=== PATIENT | female | born 1935 | race Caucasian/White ===

== ENCOUNTER → 2018-01-04 | Outpatient (CLI) | payer MEDICARE, BC ==
[~2018-01-04] MED LIST: AZI250 PO; BONIVA; CALC-649 PO; CHOL100052 PO; CYC10 PO; DEN60I SUBQ; EST3 PO; ETHA400T30 PO; FLUT16SP19 NS; HYDRO25 PO; IBAN150T6 PO; KET10 PO; LEV500 PO; LISI-362 PO; LOPE2CAP15 PO; LOR5/325 PO; METO25TA91 PO; MIRT7.5T2 PO; MULT1TAB64 PO; PNEU0.5D3 IM; PRE20 PO; RIFA300C50 PO; TRI05T TOP; VALS80TA7 PO; [UNRECOGNIZED DRUG - CODE] IJ
--- NOTE | 2018-01-04 14:01 | RADIOLOGY IMAGING REPORT ---
FACILITY: [facility] PATIENT NAME: Ludmila Yang : 1935 MR: [id number] V: [id number] EXAM DATE: ORDERING PHYSICIAN: JOSE YING TECHNOLOGIST: Location: [facility] - [place] Patient: Ludmila Yang : 1935 Visit/Account:[id number] Date of Sevice: 01/04/2018 Exam type: CHEST PA AND LAT History: Cough x1 month, history of lobectomy Comparison: September 03, 2015. Findings: Again noted is hyperinflation of the lung duran.. Extensive pleural parenchymal scarring throughout the lungs again seen particularly prominent over the medial right upper and lower lung druan. Sutu re material projects over the left hilar region. No new areas of pulmonary consolidation are identif ied. There is no evidence of pleural effusions. The cardiac silhouette is normal in size. There is diffuse osteopenia the visualized bones. IMPRESSION: 1. Hyperinflation lung duran and extensive chronic pleural parenchymal scarring appears similar to the prior study. Postoperative changes of the left lung Report Dictated By: Aida Valdez MD at 01/04/2018 1:50 PM Report E-Signed By: Aida Valdez MD at 01/04/2018 1:56 PM WSN:ANA CRISTINA
== END ==
LOC: RAD 13:12
PROVIDERS: ATTEND Internal Medicine
DX: M85.88 Other specified disorders of bone density and structure, other site (principal); R91.8 Other nonspecific abnormal finding of lung field
CPT/HCPCS: 71046

== ENCOUNTER 2018-03-02 07:59 | Outpatient (RCR) | payer MEDICARE, BC ==
[2018-03-01 15:12] LABS: PLATELET COUNT, AUTOMATED 167 K/uL (150-450)
[~2018-03-02 07:59] MED LIST changes: +GUAI600T57 PO; +IPRA3AMP21 IH; +LEVO-85 PO; +METO25TA23 PO
[2018-03-02] MEDS ORDERED: IOPAMIDOL 76% 75 ML INFUS BTL 0 ML ONE (11:10)
--- NOTE | 2018-03-02 15:40 | RADIOLOGY IMAGING REPORT ---
FACILITY: [facility] - [place] PATIENT NAME: Ludmila Yang : 1935 MR: [id number] V: [id number] EXAM DATE: ORDERING PHYSICIAN: JOSE YING TECHNOLOGIST: [place] [facility] [place] Patient: Ludmila Yang : 1935 Visit/Account:[id number] Date of Sevice: 03/02/2018 EXAMINATION: CT Thorax W/O Contrast HISTORY: Chronic cough. Bronchiectasis. TECHNIQUE: High resolution CT chest protocol: A non-intravenous enhanced contiguous spiral scan was obtained through the chest. This was followed by inspiration and expiration 1 mm thick high-resolutio n axial images at 15 mm intervals, reconstructed using a high spatial resolution algorithm. One of th e following dose optimization techniques was utilized in the performance of this exam: Automated expo sure control; adjustment of the mA and/or kV according to the patient's size; or use of an iterative reconstruction technique. Specific details can be referenced in the facility's radiology CT exam op erational policy. COMPARISON STUDIES: None. FINDINGS: Chest survey: Heart is normal size with small pericardial fluid. Aorta shows mild atherosclerotic seferino cific changes without indication of aneurysm. Pulmonary arteries are grossly normal. The mediastinum and hilar regions do show a few small lymph nodes without enlarged lymph nodes or abnormal density. C hest wall shows no enlarged axillary lymph nodes or masses. Upper abdomen is unremarkable. Bony struc tures show no acute fracture or discrete lesions. There may be a couple small loose body seen in the right subacromial bursa. High Resolution Inspiration images: Early consolidation seen in the posterior aspect the right upper lobe. No other areas of consolidation. No pleural effusion or pneumothorax. There is mild bronchiecta sis present mainly in the left lobe and prominent in the right lobe with more prominence in the right lower lobe. Mild bronchial calcifications. Both lungs do show some peripheral scattered reticulonodu lar opacities. The airways appear clear. High Resolution Expiration images: No significant airway gas trapping IMPRESSION: 1. Early consolidation of the posterior aspect right upper lobe. This may represent early pneumonia v ersus atelectasis. Discrete cause is not identified. 2. Bronchiectasis more right sided and predominantly in the right lower lobe. 3. Scattered reticulonodular opacities seen in both lungs mainly in the periphery of the lower lung f ields. This nonspecific and could be chronic versus acute pneumonitis. 4. Small pericardial fluid, nonspecific. 5. Other chronic findings as above. I called report to JOSE YING at 03/02/2018 3:36 PM. Report Dictated By: John Cordova at 03/02/2018 2:58 PM Report E-Signed By: John Cordova at 03/02/2018 3:37 PM WSN:[id number]
[2018-03-03] MEDS ORDERED: NAPR220C12 PO (14:08)
== END 2018-03-02 14:20 | disposition home or self-care (01) ==
LOC: CT 07:59
PROVIDERS: ATTEND Internal Medicine
DX: J47.9 Bronchiectasis, uncomplicated (principal)
CPT/HCPCS: 36415; 71250; 82040; 82247; 82310; 82374; 82435; 82565; 82947; 84075; 84132; 84155; 84295; 84450; 84460; 84520; 85025; 85651; 86140; 87070; 87116; 87205; Q9967

== ENCOUNTER 2018-03-03 10:52 | Inpatient (IN) | payer MEDICARE, BC ==
[~2018-03-03] VITALS: Ht 157.5 cm; Wt 40.8 kg
--- NOTE | 2018-03-03 11:11 | ER Report ---
History and Physical Time Seen By MD: 11:10 HPI/ROS CHIEF COMPLAINT: Shortness of breath HISTORY OF PRESENT ILLNESS: 82-year-old female patient presents to the emergency room with complaint of shortness of breath. Patient states she was seen by Dr. Fernandez 2 days ago. At that time she had been having significant shortness of breath. He states that her oxygen levels were 86-87% when she was sitting on room air. He states that she would desat with any type of movement. Patient has a history of bronchiectasis for which she sees pulmonology. She seemed proximal one year ago and was told that he was stable at that time. Patient has been feeling very fatigued, having more phlegm. The patient had lab work and a CT scan done yesterday which showed a developing pneumonia in the right upper lobe. At that time she was encouraged him to the emergency room for evaluation. Patient refused at that time. Patient states that she is feeling worse today. When she arrived she was 85% on room air. Patient has been taking Levaquin, she does live at home with her and does not wear oxygen normally. REVIEW OF SYSTEMS: Respiratory: As noted above Cardiovascular: No chest pain, no palpitations. Gastrointestinal: No vomiting, no abdominal pain. Musculoskeletal: No back pain. Allergies: Coded Allergies: promethazine (Verified Allergy, Mild, CRAZY, 12/08/12) ciprofloxacin (Verified Allergy, Unknown, 08/04/17) EHR CONVERSION erythromycin base (Verified Allergy, Unknown, 08/04/17) EHR CONVERSION rifabutin (Verified Allergy, Unknown, 08/04/17) EHR CONVERSION Home Meds Active Scripts Guaifenesin (MUCINEX) 600 Mg Tablet.er, 600 MG PO BID Y for cough, #30 TAB 1 Refill Prov:JOSE YING MD 03/01/18 Metoprolol Succinate (METOPROLOL SUCCINATE) 25 Mg Tab.er.24h, 1 TAB PO QDAY, # 30 TAB 5 Refills Prov:JOSE YING MD 03/01/18 Levofloxacin 500 Mg Tab (LEVAQUIN 500 MG TAB) 500 Mg Tablet, 500 MG PO QDAY, # 10 TAB Prov:JOSE YING MD 03/01/18 Fluticasone Prop 50 Mcg Ns (FLONASE 50 MCG NS) 16 Gm [place].susp, 1 SPRAY NS QDAY , #1 BOT 2 Refills Prov:JOSE YING MD 01/04/18 Loperamide HCl (Imodium A-D) 2 Mg Capsule, 1 TAB-CAP PO QDAY Y for as needed foe diarhea, #30 TAB-CAP Prov:JOSE YING MD 12/08/17 Reported Medications Naproxen Sodium (ALEVE) 220 Mg Capsule, 220 MG PO Y for PAIN, CAPSULE 03/03/18 Cholecalciferol (Vitamin D3) (VITAMIN D) 1,000 Unit Tablet, 1000 UNIT PO QDAY 12/08/17 Discontinued Reported Medications Multivitamin (MULTI VITAMIN DAILY) 1 Each Tablet, 1 EACH PO QDAY 12/08/17 Discontinued Scripts Valsartan (Valsartan) 80 Mg Tablet, 1 TAB PO BID, #60 TAB 6 Refills Prov:JOSE YING MD 01/04/18 Past Medical/Surgical History Patient has a past medical history of hypertension, bronchiectasis. Patient has a surgical history of bilateral lung surgery, orthopedic surgery, bowel surgery, hysterectomy. Reviewed Nurses Notes: Yes Hx Smoking: No Smoking Status: Never Smoker Constitutional Vital Sign - Last 24 Hours 03/03/18 03/03/18 03/03/18 03/03/18 10:52 11:05 11:07 11:10 Temp 98.1 Pulse ??? 77 70 Resp 18 B/P (MAP) 151/103 (119) 151/103 Pulse Ox 95 85 O2 Delivery Room Air 03/03/18 03/03/18 03/03/18 03/03/18 11:22 11:30 11:52 12:00 Pulse 75 72 Resp 27 22 B/P (MAP) 151/88 (109) 149/89 (109) Pulse Ox 94 95 03/03/18 03/03/18 03/03/18 03/03/18 12:07 12:20 12:22 12:37 Pulse 71 69 70 Resp 20 25 25 B/P (MAP) 147/89 (108) Pulse Ox 95 95 95 03/03/18 03/03/18 12:40 12:45 Pulse 71 Resp 26 B/P (MAP) 151/95 (113) Pulse Ox 95 Physical Exam General Appearance: The patient is alert, has no immediate need for airway protection and no current signs of toxicity. Respiratory: Chest is non tender, lungs are clear to auscultation. Cardiac: regular rate and rhythm Gastrointestinal: Abdomen is soft and non tender, no masses, bowel sounds normal. Musculoskeletal: Neck: Neck is supple and non tender. Extremities have full range of motion and are non tender. Skin: No rashes or lesions. DIFFERENTIAL DIAGNOSIS: After history and physical exam differential diagnosis was considered for shortness of breath including but not limited to pulmonary infectious process, COPD, asthma, pulmonary embolus and congestive heart failure. After reviewing her lab work done yesterday I do believe that the patient likely has developing pneumonia especially with elevated CRP, ESR. Patient did have a left shift at that time, however he did not have an elevated white count. Medical Decision Making Data Points Result Diagram: 03/03/18 1120 03/03/182009 Laboratory Hematology Test 03/03/18 11:20 Red Blood Count 3.93 M/uL (4.17-5.56) Mean Corpuscular Volume 89.8 fL (80.0-96.0) Mean Corpuscular Hemoglobin 31.8 pg (26.0-33.0) Mean Corpuscular Hemoglobin Concent 35.4 g/dL (32.0-36.0) Red Cell Distribution Width 13.7 % (11.5-14.5) Mean Platelet Volume 7.7 fL (7.2-11.1) Neutrophils (%) (Auto) 84.8 % (39.4-72.5) Lymphocytes (%) (Auto) 4.7 % (17.6-49.6) Monocytes (%) (Auto) 10.2 % (4.1-12.4) Eosinophils (%) (Auto) 0.1 % (0.4-6.7) Basophils (%) (Auto) 0.2 % (0.3-1.4) Nucleated RBC Relative Count (auto) 0.0 /100WBC Neutrophils # (Auto) 7.4 K/uL (2.0-7.4) Lymphocytes # (Auto) 0.4 K/uL (1.3-3.6) Monocytes # (Auto) 0.9 K/uL (0.3-1.0) Eosinophils # (Auto) 0.0 K/uL (0.0-0.5) Basophils # (Auto) 0.0 K/uL (0.0-0.1) Nucleated RBC Absolute Count (auto) 0.00 K/uL Total Bilirubin 0.9 mg/dl (0.2-1.3) Aspartate Amino Transf (AST/SGOT) 30 U/L (0-35) Alanine Aminotransferase (ALT/SGPT) 34 U/L (0-56) Alkaline Phosphatase 117 U/L (0-126) Troponin I < 0.012 ng/ml B-Type Natriuretic Peptide 244 pg/ml (0-100) Total Protein 7.0 gm/dl (6.3-8.2) Albumin 3.7 g/dl (3.5-5.0) Chemistry Test 03/03/18 11:20 White Blood Count 8.7 k/uL (4.5-11.0) Red Blood Count 3.93 M/uL (4.17-5.56) Hemoglobin 12.5 g/dL (12.0-16.0) Hematocrit 35.3 % (34.0-47.0) Mean Corpuscular Volume 89.8 fL (80.0-96.0) Mean Corpuscular Hemoglobin 31.8 pg (26.0-33.0) Mean Corpuscular Hemoglobin Concent 35.4 g/dL (32.0-36.0) Red Cell Distribution Width 13.7 % (11.5-14.5) Platelet Count 254 K/uL (150-450) Mean Platelet Volume 7.7 fL (7.2-11.1) Neutrophils (%) (Auto) 84.8 % (39.4-72.5) Lymphocytes (%) (Auto) 4.7 % (17.6-49.6) Monocytes (%) (Auto) 10.2 % (4.1-12.4) Eosinophils (%) (Auto) 0.1 % (0.4-6.7) Basophils (%) (Auto) 0.2 % (0.3-1.4) Nucleated RBC Relative Count (auto) 0.0 /100WBC Neutrophils # (Auto) 7.4 K/uL (2.0-7.4) Lymphocytes # (Auto) 0.4 K/uL (1.3-3.6) Monocytes # (Auto) 0.9 K/uL (0.3-1.0) Eosinophils # (Auto) 0.0 K/uL (0.0-0.5) Basophils # (Auto) 0.0 K/uL (0.0-0.1) Nucleated RBC Absolute Count (auto) 0.00 K/uL Total Bilirubin 0.9 mg/dl (0.2-1.3) Aspartate Amino Transf (AST/SGOT) 30 U/L (0-35) Alanine Aminotransferase (ALT/SGPT) 34 U/L (0-56) Alkaline Phosphatase 117 U/L (0-126) Troponin I < 0.012 ng/ml B-Type Natriuretic Peptide 244 pg/ml (0-100) Total Protein 7.0 gm/dl (6.3-8.2) Albumin 3.7 g/dl (3.5-5.0) EKG/Imaging EKG Interpretation 12 lead EKG: Rhythm: normal sinus rhythm [place]: normal QRS: normal ST segments: Inverted T waves in leads V1 and V2. ED Course/Re-evaluation ED Course Patient was admitted to an exam room, history and physical obtained. Differential diagnoses were considered. Examination patient had heart rate is regular, abdomen was soft nontender. A CBC, CMP were done. Patient had a normal white count, but did have a left shift. He did seem improved when compared to her lab work which was done yesterday. I did not do any imaging as the patient had a CT scan of her chest done yesterday. Patient did have a critically low sodium of 115. Patient is alert and oriented at this time. I discussed case with Dr. Galvez, he is except the patient for admission to hospital with a diagnosis of pneumonia and hyponatremia. I discussed this with patient who verbalized understanding and agreement with plan. Decision to Disposition Date: Mar 03, 2018 Decision to Disposition Time: 12:28 Depart Departure Latest Vital Signs Vital Signs Date Time Temp Pulse Resp B/P (MAP) Pulse Ox O2 Delivery O2 Flow Rate FiO2 03/03/18 12:45 71 26 95 03/03/18 12:40 151/95 (113) 03/03/18 11:10 98.1 Room Air Impression: Primary Impression: Pneumonia Additional Impression: Hyponatremia Condition: Condition Unchanged Disposition: Admitted from ER Referrals: JOSE YING MD (PCP) Problem Qualifiers Primary Impression: Pneumonia Pneumonia type: due to unspecified organism Laterality: right Lung location : upper lobe of lung Qualified Codes: J18.1 - Lobar pneumonia, unspecified organism VIKA BRADY VISUAL DISPLAY MANAGER Mar 03, 2018 11:10
--- NOTE | 2018-03-03 11:25 | EKG ---
FACILITY: [facility] - [place] PATIENT NAME: AAMIR ARREAGA : [id number] MR: [id number] V: [id number] EXAM DATE: ORDERING PHYSICIAN: VIKA BRADY TECHNOLOGIST: ZOEY Galvan Reason : SOB Blood Pressure : / mmHG Vent. Rate : 075 BPM Atrial Rate : 075 BPM P-R Int : 184 ms QRS Dur : 080 ms QT Int : 418 ms P-R-T Axes : 061 078 055 degrees QTc Int : 466 ms Normal sinus rhythm Possible Left atrial enlargement RSR' or QR pattern in V1 suggests right ventricular conduction delay Anteroseptal infarct , age undetermined Abnormal ECG No previous ECGs available Confirmed by ELZA PAIGE ([id number]) on 03/03/2018 12:33:15 PM Referred By: SOPHIA Confirmed By:ELZA PAIGE
[2018-03-03 11:41] LABS: PLATELET COUNT, AUTOMATED 254 K/uL (150-450)
[2018-03-03] MEDS ORDERED: NS(*) 0.9% 1000 ML BAG 1,000 ML IV ONE (12:10)
[2018-03-03 13:54] VITALS: BP 152/97
[2018-03-03] MEDS ORDERED: guaiFENesin SYRP 100MG/5ML UDC PO PRN (14:05)
[2018-03-03] MEDS ORDERED: ALBUTEROL 2.5 MG/3 ML NEB NEB PRN (14:05)
[2018-03-03] MEDS ORDERED: NAPR220C12 PO (14:08)
--- NOTE | 2018-03-03 15:15 | History & Physical ---
History of Present Illness Chief Complaint Shortness of Breath History of Present Illness She presented with shortness of breath which has progressively worsened over the last few weeks. She states that she saw Dr. Galvan 2 days ago and was given Levaquin. CT scan performed yesterday showed pneumonia of her right upper lobe. Despite antibiotic therapy, she feels she is not getting better on oral antibiotics alone. History Problems: (1) Benign hypertension Status: Chronic (2) History of bronchiectasis Status: Chronic Home Meds Active Scripts Guaifenesin (MUCINEX) 600 Mg Tablet.er, 600 MG PO BID Y for cough, #30 TAB 1 Refill Prov:JOSE GALVAN MD 03/01/18 Metoprolol Succinate (METOPROLOL SUCCINATE) 25 Mg Tab.er.24h, 1 TAB PO QDAY, # 30 TAB 5 Refills Prov:JOSE GALVAN MD 03/01/18 Levofloxacin 500 Mg Tab (LEVAQUIN 500 MG TAB) 500 Mg Tablet, 500 MG PO QDAY, # 10 TAB Prov:JOSE GALVAN MD 03/01/18 Fluticasone Prop 50 Mcg Ns (FLONASE 50 MCG NS) 16 Gm [place].susp, 1 SPRAY NS QDAY , #1 BOT 2 Refills Prov:JOSE GALVAN MD 01/04/18 Loperamide HCl (Imodium A-D) 2 Mg Capsule, 1 TAB-CAP PO QDAY Y for as needed foe diarhea, #30 TAB-CAP Prov:JOSE GALVAN MD 12/08/17 Reported Medications Naproxen Sodium (ALEVE) 220 Mg Capsule, 220 MG PO Y for PAIN, CAPSULE 03/03/18 Cholecalciferol (Vitamin D3) (VITAMIN D) 1,000 Unit Tablet, 1000 UNIT PO QDAY 12/08/17 Discontinued Reported Medications Multivitamin (MULTI VITAMIN DAILY) 1 Each Tablet, 1 EACH PO QDAY 12/08/17 Discontinued Scripts Valsartan (Valsartan) 80 Mg Tablet, 1 TAB PO BID, #60 TAB 6 Refills Prov:JOSE GALVAN MD 01/04/18 Allergies: Coded Allergies: promethazine (Verified Allergy, Mild, CRAZY, 12/08/12) ciprofloxacin (Verified Allergy, Unknown, 08/04/17) EHR CONVERSION erythromycin base (Verified Allergy, Unknown, 08/04/17) EHR CONVERSION rifabutin (Verified Allergy, Unknown, 08/04/17) EHR CONVERSION Hx Smoking: No Smoking Status: Never Smoker Caffeine Intake: Coffee, Tea Caffeine/Cups Per Day: OCC Hx Alcohol Use: Yes Hx Substance Use Disorder: No Review of Systems All Systems Reviewed/Normal: Yes, Except as Noted Respiratory: Shortness of Breath, Cough Exam Vital Signs Vital Signs Date Time Temp Pulse Resp B/P (MAP) Pulse Ox O2 Delivery O2 Flow Rate FiO2 03/03/18 13:54 98.2 69 16 152/97 (115) 93 Nasal Cannula 2.0 General Appearance: Alert, Awake, No Acute Distress, Afebrile Neuro: No Gross deficits Cardiovascular: Regular Rate and Rhythm Respiratory: No Respiratory Distress, Clear to Auscultation GI: Abd Soft and Non-Tender Psych: Alert & Oriented X3, Appropriate Mood & Affect Medical Decision Making Data Points Result Diagram: 03/03/18 1120 03/03/18 1120 Blood cultures drawn in the ER. Assessment and Plan Problems: (1) Pneumonia Status: Acute Assessment & Plan: She was admitted with right upper lobe pneumonia. She did not have elevated WBC or fever. She will be placed on Levaquin 250mg IVPB daily secondary to creatinine clearance being 30. This dose was reviewed with pharmacy. Her allergy list states she is allergic to ciprofloxacin, however, she states she has taken Levaquin many times without complication and is unsure of any reaction to Ciprofloxacin. She will also get nebulizers, flutter therapy , and oxygen. (2) Hyponatremia Status: Acute Assessment & Plan: Her sodium level was 115. We will continue to give IV hydration. We will recheck her BMP at 1999. (3) Benign hypertension Status: Chronic Assessment & Plan: She is on chronic treatment with Metoprolol. Venous Thromboembolism Antithrombotics Is Pt On Any Antithrombotics?: Yes Exam Sepsis Risk: No Definite Risk Problem Qualifiers (1) Pneumonia: Pneumonia type: due to unspecified organism Laterality: right Lung location : upper lobe of lung Qualified Codes: J18.1 - Lobar pneumonia, unspecified organism JET BURNS [employer] MASTER Mar 03, 2018 15:15
[2018-03-03 16:02] VITALS: BP 152/108
[2018-03-03 20:25] VITALS: BP 168/97
[2018-03-03] MEDS: NS(*) 0.9% 1000 ML BAG 1,000 ML IV PRN (20:25)
[2018-03-03] MEDS: MELATONIN 3 MG TAB PO SCH (21:16)
[2018-03-03] MEDS: ACETAMINOPHEN 325 MG TAB PO PRN (21:16)
[2018-03-04 02:45] VITALS: BP 140/95
[2018-03-04] MEDS: NS(*) 0.9% 1000 ML BAG 1,000 ML IV PRN (04:05)
[2018-03-04 06:15] LABS: PLATELET COUNT, AUTOMATED 187 K/uL (150-450)
[2018-03-04] MEDS ORDERED: ONDANSETRON 4 MG/2 ML VIAL IVP PRN (06:50)
[2018-03-04 08:01] VITALS: BP 129/83
[2018-03-04] MEDS: FLUTICASONE PROP 0.05% 16 GM SCH (08:34)
[2018-03-04] MEDS: ENOXAPARIN 30 MG/0.3 ML SYR SC SCH (08:34)
[2018-03-04] MEDS: METOPROLOL SUCC XL 25 MG TABCR PO SCH (08:34)
[2018-03-04] MEDS: LEVOFLOXACIN/D5W 250 MG/50 ML 50 ML IVPB SCH (09:40)
[2018-03-04] MEDS: guaiFENesin 600 MG TABCR PO SCH ×2 (10:59→20:35)
[2018-03-04 11:02] VITALS: BP 110/64
--- NOTE | 2018-03-04 13:32 | Medical Nutrition Therapy ---
Nutrition Anthropometrics Height (Inches): 62.00 Height (Calculated Centimeters: 157.477123 Weight (Pounds): 90 Weight (Calculated Kilograms): 40.823 Huseyin Nutrition Score: Adequate Huseyin Nutrition Risk Score: 17 Dietary Referral Nutrition Risk Factors: Nutrition Risk Comment: Physical Findings Physical Appearance: Underweight BMI<19 (Facilities Maintenance Assistant performed malnutrition focused physicial exam) Skin Appearance Skin Appearance: Edema Edema Location Modifier: Edema Location: Type of Edema: Degree of Edema: Gastrointestinal Symptoms GI Symtoms: Nausea Tube Present: Bowel Sounds: Recent Bowel Pattern: Stool Characteristics: Nutritional Diagnosis Nutritional Risk Acuity 1: Malnutrition Nutritional Risk Acuity 2: Pr Appetite > 3d Nutritional Risk Acuity 3: %IBW 81-89% Past Medical History: benign hypertension, bronchiectasis Nutritional Acuity: 1-High (Severe protein calorie malnutrition) Nutrition Diagnosis: Inadequate Food Intake Nutrition Etiology: Loss of Appetite Nutrition Problem/Etiology/Sym: Inadequate food intake related to loss of appetite as evidence by pt 81% of IBW of 110 lbs. Energy Requirement: 1225 (kcal/day (30 kcal/kg)) Protein Requirement: 37 (g/day (0.9 g/kg)) Fluid Requirement: 1500 (mL/day) Diet Type: Diet as Tolerated ENMANUEL/REG Nutrition Intervention: Cont diet as ordered, Encourage intake Nutritional Needs Comment: Pt qualifies for severe protein calorie malnutrition Food Likes: Milk Food Dislikes: Boost Diet Comment To [facility]: OFFER ENSURE ENLIVE AT EVERY MEAL IF REFUSES TRY ANOTHER SUPPLEMENT. PROTEIN POWDER IN APPROPRIATE FOODS. ENCOURAGE INTAKE. Nutrition Monitoring & Eval Nutrition Goals: Eat 90-100% Meal Nutrition Follow-Up: Poor Intake RD Patient Assessment Time: [address] Assessment Type: RD Assessment Patient Nutrition Acuity: 1-High Follow Up Date: Mar 07, 2018 Nutritional Comment: 03/04 Pt admitted for pneumonia and hyponatremia. Pt diet order diet as tolerated and has consumed 75% x 1 meal since admit. Pt current wt 40.8 kg (81% of IBW of 110 lbs). Facilities Maintenance Assistant performed Nutrition Focused Physical Exam on pt qualifying for severe protein calorie malnutrition. Pt meets the following criteria for diagnosis of malnutrition: subcutaneous fat loss of triceps, fat overlying ribcage; subcutaneous muscle loss in temples, clavicles, scapula, thigh and calf; poor PO intake for 6 months reported by pt resulting in reported 25 lb wt loss equaling 21% wt loss of usual body weight of 120lbs. Monitor and encourage intake. [facility]'s to offer Ensure Enlive with each meal, add protein to appropriate foods and encourage intake. NA 119, hgb 11.8, hct 33.3. Monitor intake, wt and progress. ELLIOT MEJIA Mar 04, 2018 10:47
--- NOTE | 2018-03-04 13:32 | Hospitalist Progress Note ---
Subjective Progress Notes Subjective She has complaints of sputum with nausea feeling. Patient Complains of: Cardiovascular: No: Chest Pain Respiratory: Congestion, No: Shortness of Breath Physical Exam Vital Signs Date Time Temp Pulse Resp B/P (MAP) Pulse Ox O2 Delivery O2 Flow Rate FiO2 03/04/18 11:02 97.3 72 16 110/64 (79) 93 Nasal Cannula 0.5 Intake and Output 03/05/18 07:00 # Voids 2 # Bowel Movements 1 General Appearance: Alert, Awake, No Acute Distress, Afebrile Neuro: No Gross deficits Cardiovascular: Regular Rate and Rhythm Respiratory: No Respiratory Distress, Clear to Auscultation, Other (cough present through exam) GI: Soft and Non-Tender Psych: Alert & Oriented X3, Appropriate Mood & Affect Result Diagram: 03/04/1853903/04/18539 Assessment and Plan Problems: (1) Pneumonia Status: Acute Assessment & Plan: She was admitted with right upper lobe pneumonia. She did not have elevated WBC or fever. She will be placed on Levaquin 250mg IVPB daily secondary to creatinine clearance being 30. This dose was reviewed with pharmacy. Her allergy list states she is allergic to ciprofloxacin, however, she states she has taken Levaquin many times without complication and is unsure of any reaction to Ciprofloxacin. She will also get nebulizers, flutter therapy , and oxygen. We will add Guaifenesin today to help with secretions. She has increased weakness, we will order PT evaluation. (2) Hyponatremia Status: Acute Assessment & Plan: Her sodium level was 115 upon admission. This morning, it raised to 119. We will continue to give IV hydration. We will recheck her BMP at 1300. (3) Benign hypertension Status: Chronic Assessment & Plan: She is on chronic treatment with Metoprolol. (4) Protein calorie malnutrition Status: Acute Assessment & Plan: Evaluation performed by Dietary, shows protein calorie malnutrition. She will be placed on high protein diet. Dietary will encourage high protein snacks also. Exam Sepsis Risk: No Definite Risk Problem Qualifiers (1) Pneumonia: Pneumonia type: due to unspecified organism Laterality: right Lung location : upper lobe of lung Qualified Codes: J18.1 - Lobar pneumonia, unspecified organism JET BURNSP Mar 04, 2018 13:32
[2018-03-04 15:40] VITALS: BP 121/81
[2018-03-04 19:13] VITALS: BP 132/72
[2018-03-04] MEDS: MELATONIN 3 MG TAB PO SCH (20:35)
[2018-03-05 03:47] VITALS: BP 133/82
[2018-03-05 07:00] VITALS: BP 130/89
[2018-03-05 07:17] LABS: PLATELET COUNT, AUTOMATED 192 K/uL (150-450)
[2018-03-05] MEDS: METOPROLOL SUCC XL 25 MG TABCR PO SCH (08:27)
[2018-03-05] MEDS: ENOXAPARIN 30 MG/0.3 ML SYR SC SCH (08:27)
[2018-03-05] MEDS: guaiFENesin 600 MG TABCR PO SCH ×2 (08:27→21:09)
[2018-03-05] MEDS: FLUTICASONE PROP 0.05% 16 GM SCH (08:27)
--- NOTE | 2018-03-05 10:10 | Hospitalist Progress Note ---
Subjective Progress Notes Subjective She reports some improvements. Still not much appetite. No fever. Physical Exam Vital Signs Date Time Temp Pulse Resp B/P (MAP) Pulse Ox O2 Delivery O2 Flow Rate FiO2 03/05/18 07:00 Nasal Cannula 1.0 03/05/18 07:00 98.8 70 20 130/89 (103) 91 Intake and Output 03/06/18 07:00 # Voids 1 General Appearance: Alert, Awake Cardiovascular: Regular Rate and Rhythm Respiratory: Other (left base and right mid-base rales) Chest: No Tenderness GI: Soft and Non-Tender Extremities: Warm, Perfused Result Diagram: 03/05/1849 03/05/1849 Assessment and Plan Problems: (1) Pneumonia Status: Acute Assessment & Plan: She was admitted with right upper lobe pneumonia. She did not have elevated WBC or fever. She was placed on Levaquin 250mg IV daily ( secondary to creatinine clearance of 30). Dose was reviewed with pharmacy. Her allergy list states she is allergic to ciprofloxacin, however, she states she has taken Levaquin many times without complication and is unsure of any reaction to Ciprofloxacin. Clinically, she seems to be improving. (2) Hyponatremia Status: Acute Assessment & Plan: Her sodium level was 115 upon admission. It had dropped fairly quickly (126 two days before admission). She is now rising back towards normal without specific therapy. Monitor closely. (3) Benign hypertension Status: Chronic Assessment & Plan: She is on chronic treatment with Metoprolol. (4) Protein calorie malnutrition Status: Acute Assessment & Plan: Evaluation performed by Dietary, shows protein calorie malnutrition. She is on high protein diet. I discussed need to increase protein intake with patient and she reports understanding. Exam Sepsis Risk: No Definite Risk Problem Qualifiers (1) Pneumonia: Pneumonia type: due to unspecified organism Laterality: right Lung location : upper lobe of lung Qualified Codes: J18.1 - Lobar pneumonia, unspecified organism BRENDA LOPEZ MD Mar 05, 2018 10:10
[2018-03-05] MEDS: LEVOFLOXACIN/D5W 250 MG/50 ML 50 ML IVPB SCH (10:39)
[2018-03-05 11:07] VITALS: BP 101/67
[2018-03-05] MEDS ORDERED: INFLUENZA VIRUS VAC 0.5 ML SYR IM ONLY ONE (14:05)
[2018-03-05 15:00] VITALS: BP 104/66
[2018-03-05 19:20] VITALS: BP 146/91
[2018-03-05] MEDS ORDERED: LOPERAMIDE HCL 2 MG CAP PO ONE (20:35)
[2018-03-05] MEDS: ACETAMINOPHEN 325 MG TAB PO PRN (21:10)
[2018-03-05] MEDS: MELATONIN 3 MG TAB PO SCH (21:10)
[2018-03-06 02:29] VITALS: BP 117/63
[2018-03-06 07:53] VITALS: BP 136/71
[2018-03-06] MEDS: ENOXAPARIN 30 MG/0.3 ML SYR SC SCH (08:42)
[2018-03-06] MEDS: guaiFENesin 600 MG TABCR PO SCH (08:42)
[2018-03-06] MEDS: METOPROLOL SUCC XL 25 MG TABCR PO SCH (08:42)
[2018-03-06] MEDS: FLUTICASONE PROP 0.05% 16 GM SCH (08:43)
--- NOTE | 2018-03-06 09:35 | Hospitalist Depart ---
Discharge Summary Reason for Hosp/Final Diag: (1) Pneumonia Status: Acute Hospital Course & Plan: She was admitted for a right upper lobe pneumonia. She was placed on empiric treatment with levofloxacin. Her cultures have been negative. She will complete the prescription for levofloxacin that she already started prior to admission. (2) Hyponatremia Status: Acute Hospital Course & Plan: Her sodium level was 115 upon admission. She was treated with IV saline and her sodium gradually improved. (3) Benign hypertension Status: Chronic Hospital Course & Plan: She is on chronic treatment with Metoprolol. (4) Protein calorie malnutrition Status: Acute Hospital Course & Plan: She was advised on a high protein diet. Departure Latest Vital Signs Vital Signs 03/06/18 07:53 Temp 98.2 Pulse 67 Resp 16 B/P (MAP) 136/71 (92) Pulse Ox 95 O2 Delivery Nasal Cannula O2 Flow Rate 1.5 Weight (Pounds): 90 Result Diagram: 03/05/18 0649 03/06/18605 Condition: Improved Discharge: Home, Self Care Discharge Instructions Home Meds Active Scripts Guaifenesin (MUCINEX) 600 Mg Tablet.er, 600 MG PO BID Y for cough, #30 TAB 1 Refill Prov:JOSE YING MD 03/01/18 Metoprolol Succinate (METOPROLOL SUCCINATE) 25 Mg Tab.er.24h, 1 TAB PO QDAY, # 30 TAB 5 Refills Prov:JOSE YING MD 03/01/18 Levofloxacin 500 Mg Tab (LEVAQUIN 500 MG TAB) 500 Mg Tablet, 500 MG PO QDAY, # 10 TAB Prov:JOSE YING MD 03/01/18 Fluticasone Prop 50 Mcg Ns (FLONASE 50 MCG NS) 16 Gm [place].susp, 1 SPRAY NS QDAY , #1 BOT 2 Refills Prov:JOSE YING MD 01/04/18 Loperamide HCl (Imodium A-D) 2 Mg Capsule, 1 TAB-CAP PO QDAY Y for as needed foe diarhea, #30 TAB-CAP Prov:JOSE YING MD 12/08/17 Reported Medications Cholecalciferol (Vitamin D3) (VITAMIN D) 1,000 Unit Tablet, 1000 UNIT PO QDAY 12/08/17 Discontinued Reported Medications Naproxen Sodium (ALEVE) 220 Mg Capsule, 220 MG PO Y for PAIN, CAPSULE 03/03/18 Multivitamin (MULTI VITAMIN DAILY) 1 Each Tablet, 1 EACH PO QDAY 12/08/17 Discontinued Scripts Valsartan (Valsartan) 80 Mg Tablet, 1 TAB PO BID, #60 TAB 6 Refills Prov:JOSE YING MD 01/04/18 Activity: As Tolerated Copies to: JOSE YING MD Venous Thromboembolism Antithrombotics Is Pt On Any Antithrombotics?: Yes Problem Qualifiers (1) Pneumonia: Pneumonia type: due to unspecified organism Laterality: right Lung location : upper lobe of lung Qualified Codes: J18.1 - Lobar pneumonia, unspecified organism ELZA PAIGE DO Mar 06, 2018 09:35
[2018-03-06] MEDS: LEVOFLOXACIN/D5W 250 MG/50 ML 50 ML IVPB SCH (09:52)
== END 2018-03-06 11:50 | disposition home or self-care (01) | DRG 194 ==
LOC: ER 10:59 → MED 12:53
PROVIDERS: ADMIT Family Medicine; ATTEND Family Medicine
DX: J18.1 Lobar pneumonia, unspecified organism (principal); E87.1 Hypo-osmolality and hyponatremia; E46 Unspecified protein-calorie malnutrition; Z68.1 Body mass index [BMI] 19.9 or less, adult; J47.9 Bronchiectasis, uncomplicated; I10 Essential (primary) hypertension; Z88.1 Allergy status to other antibiotic agents; Z88.8 Allergy status to other drugs, medicaments and biological substances; Z90.710 Acquired absence of both cervix and uterus
CPT/HCPCS: 36415; 81001; 82040; 82247; 82310; 82374; 82435; 82565; 82947; 83880; 83930; 83935; 84075; 84132; 84155; 84295; 84300; 84450; 84460; 84484; 84520; 85025; 87040; 93005; 94640; 94667; 94668; 97161; 99284; A4353; J1650; J1956; J2405; J7030; J7613

== ENCOUNTER → 2018-04-27 | Outpatient (CLI) | payer MEDICARE, BC ==
[~2018-04-27] MED LIST changes: +CALC-18; +CHOL10005 PO; +NAPR220C12 PO
[2018-04-27 13:40] LABS: PLATELET COUNT, AUTOMATED 155 K/uL (150-450)
== END ==
LOC: LAB 13:23
PROVIDERS: ATTEND Nurse Practitioner Family
DX: I10 Essential (primary) hypertension (principal); R19.7 Diarrhea, unspecified; R10.13 Epigastric pain
CPT/HCPCS: 36415; 82040; 82150; 82247; 82310; 82374; 82435; 82565; 82947; 83690; 84075; 84132; 84155; 84295; 84450; 84460; 84520; 85025

== ENCOUNTER 2018-05-05 01:53 | Day surgery (SDC) | payer MEDICARE, BC ==
[~2018-05-05] VITALS: Ht 157.5 cm; Wt 41.7 kg
[2018-05-05 08:19] VITALS: BP 190/101
[2018-05-05] MEDS ORDERED: PROPOFOL EMUL(*) 10MG/ML 20 ML 40 ML ONE (08:25)
[2018-05-05 08:41] VITALS: BP 180/102
[2018-05-05] MEDS ORDERED: NORMOSOL R SOLN(*) 1000 ML BAG 1,000 ML IV PRN (08:45)
[2018-05-05] MEDS ORDERED: LIDOCAINE/SOD BICARB 8.4% SYR ID ONE (08:45)
[2018-05-05] MEDS ORDERED: PROPOFOL EMUL(*) 10MG/ML 20 ML 20 ML ONE (10:18)
[2018-05-05 10:30] VITALS: BP 94/52
[2018-05-05 10:42] VITALS: BP 116/73
[2018-05-05 10:59] VITALS: BP 136/77
[2018-05-05 11:15] VITALS: BP 167/95
== END 2018-05-05 11:35 | disposition home or self-care (01) ==
LOC: OR 01:53
PROVIDERS: ATTEND Internal Medicine Gastroenterology
DX: K64.9 Unspecified hemorrhoids (principal); K62.1 Rectal polyp; K57.30 Diverticulosis of large intestine without perforation or abscess without bleeding; K44.9 Diaphragmatic hernia without obstruction or gangrene; K20.9 Esophagitis, unspecified; K29.70 Gastritis, unspecified, without bleeding
CPT/HCPCS: 00811; 43239; 45380; 45385; 88305; 88313; 88344; J2704

== ENCOUNTER → 2018-10-04 | Outpatient (CLI) | payer MEDICARE, BC ==
[~2018-10-04] MED LIST changes: +AMLO-113 PO; +BENZ100C4 PO; +FLU180SY11 IM; +IPRA3AMP10 IH; -IPRA3AMP21 IH; +PANT40TA65 PO; -VALS80TA7 PO; +VALS80TA8 PO
[2018-10-04 16:27] LABS: PLATELET COUNT, AUTOMATED 189 K/uL (150-450)
--- NOTE | 2018-10-04 16:51 | RADIOLOGY IMAGING REPORT ---
FACILITY: [facility] PATIENT NAME: Ludmila Yang : 1935 MR: [id number] V: [id number] EXAM DATE: ORDERING PHYSICIAN: JOSE YING TECHNOLOGIST: Location: [facility] - [place] Patient: Ludmila Yang : 1935 Visit/Account:[id number] Date of Sevice: 10/04/2018 Exam type: CHEST PA AND LAT History: chronic cough Comparison: January 04, 2018. Findings: There is extensive pleural parenchymal scarring seen throughout the lungs similar to the prior study. Postsurgical changes left lung also noted. Hyperinflation throughout the lungs also noted There is no evidence of acute pulmonary consolidation pleural effusions or overt pulmonary edema. The cardia c silhouette is normal in size. There is a levoconvex scoliosis of the thoracic spine with diffuse o steopenia IMPRESSION: 1. Hyperinflation throughout the lung duran and extensive pleural parenchymal scarring throughout t he lungs appears similar to the prior study Report Dictated By: Aida Valdez MD at 10/04/2018 4:44 PM Report E-Signed By: Aida Valdez MD at 10/04/2018 4:46 PM WSN:[email or web address]
== END ==
LOC: LAB 15:44
PROVIDERS: ATTEND Internal Medicine
DX: E87.1 Hypo-osmolality and hyponatremia (principal); R05 Cough; Z87.09 Personal history of other diseases of the respiratory system; I10 Essential (primary) hypertension; R91.8 Other nonspecific abnormal finding of lung field
CPT/HCPCS: 36415; 71046; 82040; 82247; 82310; 82374; 82435; 82565; 82947; 84075; 84132; 84155; 84295; 84443; 84450; 84460; 84520; 85025

== ENCOUNTER → 2019-04-19 | Outpatient (CLI) | payer MEDICARE, BC ==
[~2019-04-19] MED LIST changes: -AMLO-113 PO; +AMLO-127 PO; +METO50TA19 PO; +OXYGENHOME INH; +RANI-54 PO; +SULF-198 PO
[2019-04-19 14:14] LABS: PLATELET COUNT, AUTOMATED 214 K/uL (150-450)
== END ==
LOC: LAB 13:27
PROVIDERS: ATTEND Internal Medicine
DX: I10 Essential (primary) hypertension (principal); R05 Cough; Z87.09 Personal history of other diseases of the respiratory system; R53.83 Other fatigue; R41.3 Other amnesia; R82.90 Unspecified abnormal findings in urine; B96.20 Unspecified Escherichia coli [E. coli] as the cause of diseases classified elsewhere
CPT/HCPCS: 36415; 81001; 82040; 82247; 82310; 82374; 82435; 82565; 82607; 82728; 82746; 82947; 83540; 83550; 84075; 84132; 84155; 84295; 84443; 84450; 84460; 84520; 85025; 87077; 87088; 87186

== ENCOUNTER → 2019-04-21 | Outpatient (CLI) | payer MEDICARE, BC | LOC: CT 12:57 | PROVIDERS: ATTEND Internal Medicine | DX: I51.7 Cardiomegaly (principal) | CPT/HCPCS: 71250 ==